=== PATIENT | female | born 1945 | race Caucasian/White ===

== ENCOUNTER 2017-03-29 21:21 | Emergency (ER) | payer MEDICARE, OTHER ==
[~2017-03-29] VITALS: Ht 160 cm; Wt 73.0 kg
[2017-03-29] MEDS ORDERED: ONDANSETRON 2MG/ML, 2ML ONE ×2 (21:53→23:53)
[2017-03-29 21:58] LABS: HEMATOCRIT 40.2 % (34.6-47.8); HEMOGLOBIN 13.5 g/dL (11.7-16.4); WHITE BLOOD COUNT 12.4 x10^3/uL (3.4-10)
[2017-03-29] MEDS ORDERED: SODIUM CHLORIDE 0.9% 1,000ML IVBOLUS ONE (22:00)
[2017-03-29] MEDS ORDERED: ONDANSETRON 2MG/ML, 2ML IVPush ONE (22:00)
[2017-03-29 22:08] LABS: ASPARTATE AMINO TRANSFERASE 30 U/L (15-37); BLOOD UREA NITROGEN 16 mg/dL (7-18)
[2017-03-29 22:14] LABS: IS PT STATUS REG ER OR PRE ER? YES
[2017-03-29] MEDS ORDERED: PROMETHAZINE 25 MG/ML, 1ML ONE (22:57)
[2017-03-29] MEDS ORDERED: PROMETHAZINE 25 MG/ML, 1ML IM ONE (23:00)
[2017-03-29] MEDS ORDERED: LORazepam 2 MG/ML, 1ML ONE (23:54)
[2017-03-30] MEDS ORDERED: ONDANSETRON 2MG/ML, 2ML IVPush ONE
[2017-03-30] MEDS ORDERED: LORazepam 2 MG/ML, 1ML IVPush ONE
[2017-03-30 00:29] VITALS: BP 155/88
== END 2017-03-30 00:53 | disposition home or self-care (01) ==
LOC: ED 03-30 00:02
DX: K52.29 Other allergic and dietetic gastroenteritis and colitis (principal); I10 Essential (primary) hypertension; E03.9 Hypothyroidism, unspecified; E78.00 Pure hypercholesterolemia, unspecified
CPT/HCPCS: 36415; 80053; 80307; 83690; 84484; 85025; 93005; 96361; 96372; 96374; 96375; 96376; 99285; J2060; J2405; J2550; J7030; G0479